=== PATIENT | male | born 1935 | race Caucasian/White ===

== ENCOUNTER 2017-12-18 09:55 | Emergency (ER) | payer MEDICARE, OTHER ==
[2017-12-18] MEDS: IBUPROFEN 200 MG TAB PO (10:52)
[2017-12-18 11:17] LABS: ADD MAN DIFF? NO
[2017-12-18 11:22] LABS: BASOPHILS % 0.1 % (0.0-2.0); EOSINOPHILS # 0.2 10^3/ul (0.0-0.5); EOSINOPHILS % 1.9 % (0.0-7.0); HEMATOCRIT 34.6 % (42.0-52.0); HEMOGLOBIN 11.5 g/dl (14.0-18.0); LYMPHOCYTES # 1.9 10^3/ul (0.8-2.9); LYMPHOCYTES % 18.9 % (15.0-51.0); MEAN CORPUSCULAR HEMOGLOBIN 31.9 pg (29.0-33.0); MEAN CORPUSCULAR HGB CONC 33.2 g/dl (32.0-37.0); MEAN CORPUSCULAR VOLUME 95.8 fl (82.0-101.0); MEAN PLATELET VOLUME 10.6 fl (7.4-10.4); MONOCYTE # 0.9 10^3/ul (0.3-0.9); MONOCYTES % 9.2 % (0.0-11.0); NEUTROPHILS % 69.3 % (39.0-77.0); PLATELET COUNT 239 10^3/UL (140-415); RED BLOOD COUNT 3.61 10^6/ul (4.70-6.10); RED CELL DISTRIBUTION WIDTH 13.2 % (11.5-14.5)
[2017-12-18 11:31] LABS: ADD UMIC NO; UR ASCORBIC ACID 40 mg/dL (NEGATIVE); UR BILIRUBIN (Dip) NEGATIVE (NEGATIVE); UR BLOOD (Dip) NEGATIVE (NEGATIVE); UR CLARITY CLEAR (CLEAR); UR COLOR YELLOW (YELLOW); UR GLUCOSE (Dip) NEGATIVE (NEGATIVE); UR KETONES (Dip) NEGATIVE (NEGATIVE); UR LEUKOCYTE ESTERASE (Dip) NEGATIVE Leu/ul (NEGATIVE); UR NITRITE (Dip) NEGATIVE (NEGATIVE); UR TOTAL PROTEIN (Dip) NEGATIVE (NEGATIVE); UR UROBILINOGEN (Dip) NEGATIVE (NEGATIVE)
[2017-12-18 11:47] LABS: ALANINE AMINOTRANSFERASE 20 IU/L (13-69); ALBUMIN 4.1 g/dl (3.3-4.9); ALKALINE PHOSPHATASE 98 IU/L (42-121); ANION GAP 21 (8-16); ASPARTATE AMINO TRANSFERASE 14 IU/L (15-46); BLOOD UREA NITROGEN 50 mg/dl (7-20); CALCIUM 9.9 mg/dl (8.4-10.2); CARBON DIOXIDE 30 mmol/L (21-31); CHLORIDE 100 mmol/L (97-110); CREATININE 4.45 mg/dl (0.61-1.24); GLUCOSE 141 mg/dl (70-220); LIPASE 150 U/L (23-300); POTASSIUM 4.7 mmol/L (3.5-5.1); SODIUM 146 mmol/L (135-144); TOTAL PROTEIN 7.5 g/dl (6.1-8.1)
== END 2017-12-18 12:30 | disposition home or self-care (01) ==
LOC: FTE 09:55
DX: M54.9 Dorsalgia, unspecified (principal); I25.10 Atherosclerotic heart disease of native coronary artery without angina pectoris; I12.9 Hypertensive chronic kidney disease with stage 1 through stage 4 chronic kidney disease, or unspecified chronic kidney disease; N18.9 Chronic kidney disease, unspecified; E11.22 Type 2 diabetes mellitus with diabetic chronic kidney disease; Z79.4 Long term (current) use of insulin; Z79.82 Long term (current) use of aspirin; Z95.1 Presence of aortocoronary bypass graft
CPT/HCPCS: 74176; 80053; 81003; 83690; 85025; 93971; 99285-25

== ENCOUNTER 2018-04-18 11:10 | Emergency (ER) | payer MEDICARE, OTHER ==
[2018-04-18 12:30] LABS: ADD MAN DIFF? NO
[2018-04-18 12:37] LABS: WHITE BLOOD COUNT 10.7 10^3/ul (4.8-10.8)
[2018-04-18 12:37] LABS: BASOPHILS % 0.1 % (0.0-2.0); EOSINOPHILS # 0.1 10^3/ul (0.0-0.5); EOSINOPHILS % 0.7 % (0.0-7.0); HEMATOCRIT 32.6 % (42.0-52.0); HEMOGLOBIN 11.3 g/dl (14.0-18.0); LYMPHOCYTES # 1.2 10^3/ul (0.8-2.9); LYMPHOCYTES % 11.4 % (15.0-51.0); MEAN CORPUSCULAR HEMOGLOBIN 32.1 pg (29.0-33.0); MEAN CORPUSCULAR HGB CONC 34.7 g/dl (32.0-37.0); MEAN CORPUSCULAR VOLUME 92.6 fl (82.0-101.0); MEAN PLATELET VOLUME 11.2 fl (7.4-10.4); MONOCYTE # 1.1 10^3/ul (0.3-0.9); MONOCYTES % 9.8 % (0.0-11.0); NEUTROPHIL # 8.3 10^3/ul (1.6-7.5); NEUTROPHILS % 77.4 % (39.0-77.0); PLATELET COUNT 213 10^3/UL (140-415); RED BLOOD COUNT 3.52 10^6/ul (4.70-6.10); RED CELL DISTRIBUTION WIDTH 13.6 % (11.5-14.5)
[2018-04-18 12:56] LABS: INR 0.98; PROTIME 13.1 Sec (11.9-14.9)
[2018-04-18] MEDS: PANTOPRAZOLE 40 MG INJ IV (12:56)
[2018-04-18 12:57] LABS: PARTIAL THROMBOPLASTIN TIME 26.9 Sec (25.0-35.0)
[2018-04-18 13:02] LABS: ALANINE AMINOTRANSFERASE 25 IU/L (13-69); ALBUMIN 3.7 g/dl (3.3-4.9); ALBUMIN/GLOBULIN RATIO 1.32; ALKALINE PHOSPHATASE 86 IU/L (42-121); ANION GAP 15 (8-16); ASPARTATE AMINO TRANSFERASE 16 IU/L (15-46); BILIRUBIN,INDIRECT 0.2 mg/dl (0-1.1); BILIRUBIN,TOTAL 0.2 mg/dl (0.2-1.3); BLOOD UREA NITROGEN 86 mg/dl (7-20); CALCIUM 9.5 mg/dl (8.4-10.2); CARBON DIOXIDE 25 mmol/L (21-31); CHLORIDE 104 mmol/L (97-110); CREATININE 4.62 mg/dl (0.61-1.24); GLUCOSE 100 mg/dl (70-220); POTASSIUM 3.3 mmol/L (3.5-5.1); SODIUM 141 mmol/L (135-144); TOTAL PROTEIN 6.5 g/dl (6.1-8.1)
[2018-04-18 13:15] LABS: TROPONIN-I 0.086 ng/ml (0.000-0.120)
[2018-04-18 13:39] LABS: OCCULT BLOOD STOOL NEGATIVE (NEGATIVE)
[2018-04-18] MEDS: POTASSIUM CHLORIDE (SR) 20 MEQ TAB PO (14:12)
[2018-04-18] MEDS: LOPERAMIDE HCL 1 MG/5 ML LIQUID (10 ML UD CUP) PO (14:12)
== END 2018-04-18 14:16 | disposition home or self-care (01) ==
LOC: E/R 11:10
DX: D64.9 Anemia, unspecified (principal); I25.10 Atherosclerotic heart disease of native coronary artery without angina pectoris; E11.9 Type 2 diabetes mellitus without complications; I10 Essential (primary) hypertension; R10.32 Left lower quadrant pain; Z95.1 Presence of aortocoronary bypass graft; Z79.82 Long term (current) use of aspirin; Z79.4 Long term (current) use of insulin
CPT/HCPCS: 36415; 80053; 82270; 84484; 85025; 85610; 85730; 86850; 86900; 86901; 93005; 96374; 99284-25

== ENCOUNTER 2018-05-09 17:24 | Inpatient (IN) | payer MEDICARE, OTHER ==
[2018-05-09 17:46] LABS: ADD MAN DIFF? NO
[2018-05-09 17:52] LABS: BASOPHILS % 0.1 % (0.0-2.0); EOSINOPHILS % 0.2 % (0.0-7.0); HEMATOCRIT 28.6 % (42.0-52.0); HEMOGLOBIN 9.9 g/dl (14.0-18.0); LYMPHOCYTES # 1.3 10^3/ul (0.8-2.9); LYMPHOCYTES % 9.8 % (15.0-51.0); MEAN CORPUSCULAR HEMOGLOBIN 31.5 pg (29.0-33.0); MEAN CORPUSCULAR HGB CONC 34.6 g/dl (32.0-37.0); MEAN CORPUSCULAR VOLUME 91.1 fl (82.0-101.0); MEAN PLATELET VOLUME 9.7 fl (7.4-10.4); MONOCYTE # 1.2 10^3/ul (0.3-0.9); MONOCYTES % 9.3 % (0.0-11.0); NEUTROPHIL # 10.3 10^3/ul (1.6-7.5); NEUTROPHILS % 79.9 % (39.0-77.0); PLATELET COUNT 185 10^3/UL (140-415); RED BLOOD COUNT 3.14 10^6/ul (4.70-6.10); RED CELL DISTRIBUTION WIDTH 13.2 % (11.5-14.5)
[2018-05-09 17:52] LABS: WHITE BLOOD COUNT 12.9 10^3/ul (4.8-10.8)
[2018-05-09 18:10] LABS: ALANINE AMINOTRANSFERASE 15 IU/L (13-69); ALBUMIN 3.3 g/dl (3.3-4.9); ALBUMIN/GLOBULIN RATIO 1.13; ALKALINE PHOSPHATASE 70 IU/L (42-121); ANION GAP 14 (8-16); ASPARTATE AMINO TRANSFERASE 16 IU/L (15-46); BILIRUBIN,INDIRECT 0.4 mg/dl (0-1.1); BILIRUBIN,TOTAL 0.4 mg/dl (0.2-1.3); BLOOD UREA NITROGEN 80 mg/dl (7-20); CARBON DIOXIDE 24 mmol/L (21-31); CHLORIDE 100 mmol/L (97-110); CREATININE 4.57 mg/dl (0.61-1.24); GLUCOSE 145 mg/dl (70-220); LIPASE 71 U/L (23-300); POTASSIUM 3.4 mmol/L (3.5-5.1); SODIUM 135 mmol/L (135-144); TOTAL PROTEIN 6.2 g/dl (6.1-8.1)
[2018-05-09 19:08] LABS: URINE BLOOD (Dip) POC 2+ (NEGATIVE); URINE GLUCOSE (Dip) POC Negative (NEGATIVE); URINE KETONES (Dip) POC Negative (NEGATIVE); URINE LEUKOCYTE EST (Dip) POC 3+ (NEGATIVE); URINE NITRITE (Dip) POC Negative (NEGATIVE); URINE TOTAL PROTEIN POC Trace (NEGATIVE)
[2018-05-09] MEDS: CEFTRIAXONE 1 GM/50 ML (PMX) 50 ML IVPB (22:18)
[2018-05-10] MEDS ORDERED: ONDANSETRON 4 MG TAB PO (00:30)
[2018-05-10] MEDS ORDERED: NACL 0.9% 3 ML SYG IV (00:30)
[2018-05-10] MEDS ORDERED: ZOLPIDEM 5 MG TAB PO (00:30)
[2018-05-10] MEDS ORDERED: GLUCAGON 1 MG INJ IM (01:00)
[2018-05-10] MEDS ORDERED: NON-FORMULARY/PATIENT OWN MED (Hydrocodone/Acetaminophen (Norco 5-325 Tablet) 1 EACH) PO ×2 (01:00)
[2018-05-10] MEDS ORDERED: GLUCOSE GEL 15 GRAM TUBE PO ×2 (01:00)
[2018-05-10] MEDS ORDERED: ACETAMINOPHEN 325 MG TAB PO (01:00)
[2018-05-10] MEDS ORDERED: GLUCOSE GEL 15 GRAM TUBE BUCCAL (01:00)
[2018-05-10] MEDS ORDERED: DEXTROSE 50% 50 ML SYRINGE IV ×2 (01:00)
[2018-05-10] MEDS: ACCU-CHEK XX (01:09)
[2018-05-10] MEDS: FUROSEMIDE 40 MG TAB PO ×2 (05:45→17:44)
[2018-05-10] MEDS ORDERED: PENDING SANTYL ORDER FOR WOUND CARE XX (06:00)
[2018-05-10] MEDS: INSULIN ASPART [NOVOLOG] 3 ML PEN SC ×4 (08:00→21:00)
[2018-05-10] MEDS ORDERED: NON-FORMULARY/PATIENT OWN MED (Sitagliptin* (Januvia*) 50 MG) PO (09:00)
[2018-05-10] MEDS: ASPIRIN (EC) 81 MG TAB PO (09:16)
[2018-05-10] MEDS: GABAPENTIN 300 MG CAP PO ×3 (09:17→22:19)
[2018-05-10] MEDS: FAMOTIDINE 20 MG TAB PO (09:17)
[2018-05-10] MEDS: METOPROLOL 50 MG TAB PO ×2 (09:17→22:19)
[2018-05-10] MEDS: traMADol 50 MG TAB PO (09:18)
[2018-05-10] MEDS: LINAGLIPTIN 5 MG TABLET PO (09:18)
[2018-05-10] MEDS: CALCITRIOL 0.25 MCG CAP PO (10:30)
[2018-05-10] MEDS: METOLAZONE 2.5 MG TAB PO (10:30)
[2018-05-10] MEDS: POTASSIUM CHLORIDE (SR) 20 MEQ TAB PO (17:45)
[2018-05-11] MEDS: ACCU-CHEK XX (01:36)
[2018-05-11] MEDS: traMADol 50 MG TAB PO ×2 (04:02→08:43)
[2018-05-11 05:41] LABS: HEMATOCRIT 27.7 % (42.0-52.0); HEMOGLOBIN 9.6 g/dl (14.0-18.0)
[2018-05-11 06:04] LABS: MAGNESIUM 1.2 mg/dl (1.7-2.5)
[2018-05-11 06:07] LABS: ANION GAP 13 (8-16); BLOOD UREA NITROGEN 85 mg/dl (7-20); CALCIUM 8.5 mg/dl (8.4-10.2); CARBON DIOXIDE 24 mmol/L (21-31); CHLORIDE 102 mmol/L (97-110); CREATININE 4.69 mg/dl (0.61-1.24); GLUCOSE 76 mg/dl (70-220); POTASSIUM 3.7 mmol/L (3.5-5.1); SODIUM 135 mmol/L (135-144)
[2018-05-11] MEDS: FUROSEMIDE 40 MG TAB PO (06:27)
[2018-05-11 06:28] LABS: THYROID STIMULATING HORMONE 0.887 MIU/L (0.465-4.680)
[2018-05-11] MEDS: INSULIN ASPART [NOVOLOG] 3 ML PEN SC ×4 (08:00→21:18)
[2018-05-11] MEDS: ASPIRIN (EC) 81 MG TAB PO (08:26)
[2018-05-11] MEDS: POTASSIUM CHLORIDE (SR) 20 MEQ TAB PO (08:27)
[2018-05-11] MEDS: LINAGLIPTIN 5 MG TABLET PO (08:27)
[2018-05-11] MEDS: CALCITRIOL 0.25 MCG CAP PO (08:27)
[2018-05-11] MEDS: FAMOTIDINE 20 MG TAB PO (08:27)
[2018-05-11] MEDS: METOLAZONE 2.5 MG TAB PO (08:28)
[2018-05-11] MEDS: METOPROLOL 50 MG TAB PO ×2 (08:28→21:15)
[2018-05-11] MEDS: GABAPENTIN 300 MG CAP PO ×3 (08:30→21:15)
[2018-05-11 08:36] LABS: HEMOGLOBIN A1C 5.4 % (0-5.9)
[2018-05-11] MEDS ORDERED: MAGNESIUM SULFATE 1 GM/D5W 100 ML IVPB (10:00)
[2018-05-11] MEDS ORDERED: HYDROCODONE/APAP (10/325) TAB PO (10:00)
[2018-05-11 11:04] LABS: PHOSPHORUS 4.4 mg/dl (2.5-4.9)
[2018-05-11 11:14] LABS: B-TYPE NATRIURETIC PEPTIDE 5090 PG/ML (0-450)
[2018-05-11] MEDS: ACETAMINOPHEN 325 MG TAB PO (11:57)
[2018-05-11] MEDS: MAGNESIUM SULFATE 3 GM in DEXTROSE 5% 100 ML IVPB (11:57)
[2018-05-11 13:06] LABS: CREATININE,URINE RANDOM 82.94 mg/dl (20-370); PROTEIN/CREAT RATIO 0.31 RATIO
[2018-05-11] MEDS: EPOETIN 10000 UNITS/1 ML INJ (ESRD) SC (16:54)
[2018-05-11] MEDS: INSULIN GLARGINE [LANTus] (100 UNITS/ML) SYG SC (21:26)
[2018-05-12] MEDS: ACCU-CHEK XX ×2 (02:00→20:36)
[2018-05-12] MEDS ORDERED: INSULIN ASPART [NOVOLOG] 3 ML PEN SC (03:00)
[2018-05-12 06:11] LABS: ADD MAN DIFF? NO
[2018-05-12 06:25] LABS: BASOPHILS % 0.1 % (0.0-2.0); EOSINOPHILS # 0.1 10^3/ul (0.0-0.5); EOSINOPHILS % 0.9 % (0.0-7.0); HEMATOCRIT 27.3 % (42.0-52.0); HEMOGLOBIN 9.4 g/dl (14.0-18.0); LYMPHOCYTES % 9.6 % (15.0-51.0); MEAN CORPUSCULAR HEMOGLOBIN 31.5 pg (29.0-33.0); MEAN CORPUSCULAR HGB CONC 34.4 g/dl (32.0-37.0); MEAN CORPUSCULAR VOLUME 91.6 fl (82.0-101.0); MEAN PLATELET VOLUME 10.9 fl (7.4-10.4); MONOCYTE # 1.2 10^3/ul (0.3-0.9); MONOCYTES % 12.4 % (0.0-11.0); NEUTROPHIL # 7.6 10^3/ul (1.6-7.5); NEUTROPHILS % 76.1 % (39.0-77.0); PLATELET COUNT 166 10^3/UL (140-415); RED BLOOD COUNT 2.98 10^6/ul (4.70-6.10); RED CELL DISTRIBUTION WIDTH 12.9 % (11.5-14.5)
[2018-05-12 06:32] LABS: MAGNESIUM 1.9 mg/dl (1.7-2.5)
[2018-05-12 06:43] LABS: ALANINE AMINOTRANSFERASE 20 IU/L (13-69); ALBUMIN 2.9 g/dl (3.3-4.9); ALKALINE PHOSPHATASE 63 IU/L (42-121); ANION GAP 12 (8-16); ASPARTATE AMINO TRANSFERASE 13 IU/L (15-46); BILIRUBIN,INDIRECT 0.2 mg/dl (0-1.1); BILIRUBIN,TOTAL 0.2 mg/dl (0.2-1.3); BLOOD UREA NITROGEN 95 mg/dl (7-20); CALCIUM 8.6 mg/dl (8.4-10.2); CARBON DIOXIDE 26 mmol/L (21-31); CHLORIDE 98 mmol/L (97-110); CREATININE 4.91 mg/dl (0.61-1.24); GLUCOSE 112 mg/dl (70-220); POTASSIUM 3.9 mmol/L (3.5-5.1); SODIUM 132 mmol/L (135-144); TOTAL PROTEIN 5.8 g/dl (6.1-8.1)
[2018-05-12 06:51] LABS: IRON 21 ug/dl (35-150)
[2018-05-12 07:00] LABS: % IRON SATURATION 10 % SAT (22-52); TOTAL IRON BINDING CAPACITY 212 ug/dl (241-421)
[2018-05-12] MEDS: INSULIN ASPART [NOVOLOG] 3 ML PEN SC ×7 (08:00→20:35)
[2018-05-12] MEDS: ASPIRIN (EC) 81 MG TAB PO (08:28)
[2018-05-12] MEDS: POTASSIUM CHLORIDE (SR) 20 MEQ TAB PO (08:28)
[2018-05-12] MEDS: FAMOTIDINE 20 MG TAB PO (08:28)
[2018-05-12] MEDS: GABAPENTIN 300 MG CAP PO ×3 (08:28→20:34)
[2018-05-12] MEDS: CALCITRIOL 0.25 MCG CAP PO (08:28)
[2018-05-12] MEDS: LINAGLIPTIN 5 MG TABLET PO (08:28)
[2018-05-12] MEDS: METOPROLOL 50 MG TAB PO ×2 (08:29→20:34)
[2018-05-12] MEDS ORDERED: HYDROCODONE/APAP (5/325) TAB PO (12:30)
[2018-05-12] MEDS: SOD FERRIC GLUC COMPLX 125 MG in SOD CHLORIDE 0.9% 100 ML IVPB (17:56)
[2018-05-12] MEDS ORDERED: INSULIN GLARGINE [LANTus] (100 UNITS/ML) SYG SC (20:00)
[2018-05-12] MEDS: INSULIN GLARGINE [LANTus] (100 UNITS/ML) SYG SC (20:35)
[2018-05-13 04:57] LABS: ADD MAN DIFF? NO
[2018-05-13 05:03] LABS: WHITE BLOOD COUNT 10.3 10^3/ul (4.8-10.8)
[2018-05-13 05:03] LABS: ABNORMAL IP MESSAGE 1; BASOPHILS % 0.2 % (0.0-2.0); EOSINOPHILS # 0.1 10^3/ul (0.0-0.5); EOSINOPHILS % 0.7 % (0.0-7.0); HEMATOCRIT 27.1 % (42.0-52.0); HEMOGLOBIN 9.3 g/dl (14.0-18.0); LYMPHOCYTES # 1.1 10^3/ul (0.8-2.9); LYMPHOCYTES % 11.1 % (15.0-51.0); MEAN CORPUSCULAR HEMOGLOBIN 31.6 pg (29.0-33.0); MEAN CORPUSCULAR HGB CONC 34.3 g/dl (32.0-37.0); MEAN CORPUSCULAR VOLUME 92.2 fl (82.0-101.0); MEAN PLATELET VOLUME 10.6 fl (7.4-10.4); MONOCYTE # 1.5 10^3/ul (0.3-0.9); MONOCYTES % 14.7 % (0.0-11.0); NEUTROPHIL # 7.5 10^3/ul (1.6-7.5); NEUTROPHILS % 72.7 % (39.0-77.0); PLATELET COUNT 183 10^3/UL (140-415); POSITIVE DIFF @See below; RED BLOOD COUNT 2.94 10^6/ul (4.70-6.10); RED CELL DISTRIBUTION WIDTH 13.1 % (11.5-14.5)
[2018-05-13 05:26] LABS: ALANINE AMINOTRANSFERASE 20 IU/L (13-69); ALBUMIN/GLOBULIN RATIO 1.11; ALKALINE PHOSPHATASE 67 IU/L (42-121); ANION GAP 14 (8-16); ASPARTATE AMINO TRANSFERASE 13 IU/L (15-46); BILIRUBIN,INDIRECT 0.1 mg/dl (0-1.1); BILIRUBIN,TOTAL 0.1 mg/dl (0.2-1.3); BLOOD UREA NITROGEN 101 mg/dl (7-20); CALCIUM 8.8 mg/dl (8.4-10.2); CARBON DIOXIDE 24 mmol/L (21-31); CHLORIDE 100 mmol/L (97-110); CREATININE 5.43 mg/dl (0.61-1.24); GLUCOSE 144 mg/dl (70-220); POTASSIUM 4.3 mmol/L (3.5-5.1); SODIUM 134 mmol/L (135-144); TOTAL PROTEIN 5.7 g/dl (6.1-8.1)
[2018-05-13] MEDS: traMADol 50 MG TAB PO (05:46)
[2018-05-13] MEDS: INSULIN ASPART [NOVOLOG] 3 ML PEN SC ×7 (08:20→21:00)
[2018-05-13] MEDS: CALCITRIOL 0.25 MCG CAP PO (08:22)
[2018-05-13] MEDS: ASPIRIN (EC) 81 MG TAB PO (08:22)
[2018-05-13] MEDS: FAMOTIDINE 20 MG TAB PO (08:22)
[2018-05-13] MEDS: LINAGLIPTIN 5 MG TABLET PO (08:22)
[2018-05-13] MEDS: GABAPENTIN 300 MG CAP PO ×3 (08:22→21:04)
[2018-05-13] MEDS: METOPROLOL 50 MG TAB PO ×2 (08:23→21:05)
[2018-05-13] MEDS: SOD FERRIC GLUC COMPLX 125 MG in SOD CHLORIDE 0.9% 100 ML IVPB (17:21)
[2018-05-13] MEDS: INSULIN GLARGINE [LANTus] (100 UNITS/ML) SYG SC (21:09)
[2018-05-14] MEDS: ACCU-CHEK XX (02:00)
[2018-05-14 05:39] LABS: ADD MAN DIFF? NO
[2018-05-14 05:44] LABS: WHITE BLOOD COUNT 9.8 10^3/ul (4.8-10.8)
[2018-05-14 05:44] LABS: BASOPHILS % 0.2 % (0.0-2.0); EOSINOPHILS # 0.1 10^3/ul (0.0-0.5); EOSINOPHILS % 0.8 % (0.0-7.0); HEMATOCRIT 28.1 % (42.0-52.0); HEMOGLOBIN 9.3 g/dl (14.0-18.0); LYMPHOCYTES # 0.8 10^3/ul (0.8-2.9); LYMPHOCYTES % 7.8 % (15.0-51.0); MEAN CORPUSCULAR HEMOGLOBIN 30.7 pg (29.0-33.0); MEAN CORPUSCULAR HGB CONC 33.1 g/dl (32.0-37.0); MEAN CORPUSCULAR VOLUME 92.7 fl (82.0-101.0); MEAN PLATELET VOLUME 10.7 fl (7.4-10.4); MONOCYTE # 1.5 10^3/ul (0.3-0.9); MONOCYTES % 15.3 % (0.0-11.0); NEUTROPHIL # 7.3 10^3/ul (1.6-7.5); PLATELET COUNT 188 10^3/UL (140-415); RED BLOOD COUNT 3.03 10^6/ul (4.70-6.10); RED CELL DISTRIBUTION WIDTH 12.9 % (11.5-14.5)
[2018-05-14 06:26] LABS: ANION GAP 12 (8-16); BLOOD UREA NITROGEN 101 mg/dl (7-20); CALCIUM 9.1 mg/dl (8.4-10.2); CARBON DIOXIDE 26 mmol/L (21-31); CHLORIDE 101 mmol/L (97-110); GLUCOSE 53 mg/dl (70-220); POTASSIUM 4.1 mmol/L (3.5-5.1); SODIUM 135 mmol/L (135-144)
[2018-05-14] MEDS: INSULIN ASPART [NOVOLOG] 3 ML PEN SC ×8 (07:35→20:55)
[2018-05-14] MEDS: DEXTROSE 5%-0.45% NACL 1,000 ML IV (08:37)
[2018-05-14] MEDS: CALCITRIOL 0.25 MCG CAP PO (08:43)
[2018-05-14] MEDS: ASPIRIN (EC) 81 MG TAB PO (08:43)
[2018-05-14] MEDS: LINAGLIPTIN 5 MG TABLET PO (08:43)
[2018-05-14] MEDS: GABAPENTIN 300 MG CAP PO ×2 (08:43→12:44)
[2018-05-14] MEDS: METOPROLOL 50 MG TAB PO ×2 (08:43→23:59)
[2018-05-14] MEDS: FAMOTIDINE 20 MG TAB PO (08:43)
[2018-05-14] MEDS ORDERED: LIDOCAINE 1% (MDV) 20 ML INJ (09:36)
[2018-05-14] MEDS ORDERED: HEPARIN 1000 UNITS/ML 10 ML INJ ×2 (09:36→10:45)
[2018-05-14] MEDS ORDERED: FENTAnyl 50 MCG/ML VIAL (09:48)
[2018-05-14] MEDS ORDERED: MIDAZOLAM 1 MG/ML 2 ML INJ (09:48)
[2018-05-14] MEDS ORDERED: CEFAZOLIN 1 GM/50 ML (PMX) 50 ML IVPB (10:24)
[2018-05-14 12:19] LABS: HAAIG REFLEX REFLEX FILED
[2018-05-14] MEDS ORDERED: GLUCAGON 1 MG INJ IM (13:00)
[2018-05-14] MEDS ORDERED: GLUCOSE GEL 15 GRAM TUBE PO ×2 (13:00)
[2018-05-14] MEDS ORDERED: GLUCOSE GEL 15 GRAM TUBE BUCCAL (13:00)
[2018-05-14] MEDS ORDERED: DEXTROSE 50% 50 ML SYRINGE IV ×2 (13:00)
[2018-05-14 13:10] LABS: HEPATITIS B SURFACE ANTIGEN NEGATIVE (NEGATIVE)
[2018-05-14 13:28] LABS: HEPATITIS B CORE ANTIBODY REACTIVE (NEGATIVE); HEPATITIS C VIRAL ANTIBODY NEGATIVE (NEGATIVE)
[2018-05-14] MEDS: SOD FERRIC GLUC COMPLX 125 MG in SOD CHLORIDE 0.9% 100 ML IVPB (16:50)
[2018-05-14] MEDS: EPOETIN 10000 UNITS/1 ML INJ (ESRD) SC (16:53)
[2018-05-14 19:16] LABS: PTH CALCIUM 8.5 mg/dL (8.6-10.3)
[2018-05-14] MEDS: MANNITOL 25% 50 ML INJ IV* (20:32)
[2018-05-14] MEDS: INSULIN GLARGINE [LANTus] (100 UNITS/ML) SYG SC (20:53)
[2018-05-14] MEDS: HEPARIN 1000 UNITS/ML 10 ML INJ CATHETER (23:50)
[2018-05-15 07:42] LABS: PTH INTACT 156 pg/mL (14-64)
[2018-05-15] MEDS: INSULIN ASPART [NOVOLOG] 3 ML PEN SC ×6 (08:16→17:26)
[2018-05-15] MEDS: GABAPENTIN 300 MG CAP PO ×3 (08:18→12:57)
[2018-05-15] MEDS: LINAGLIPTIN 5 MG TABLET PO (08:18)
[2018-05-15] MEDS: CALCITRIOL 0.25 MCG CAP PO (08:18)
[2018-05-15] MEDS: ASPIRIN (EC) 81 MG TAB PO (08:18)
[2018-05-15] MEDS: FAMOTIDINE 20 MG TAB PO (08:18)
[2018-05-15] MEDS: METOPROLOL 50 MG TAB PO (08:19)
[2018-05-15] MEDS: SOD FERRIC GLUC COMPLX 125 MG in SOD CHLORIDE 0.9% 100 ML IVPB (16:50)
[2018-05-15 18:27] LABS: PTH CALCIUM 8.8 mg/dL (8.6-10.3)
[2018-05-17 00:04] LABS: PTH INTACT 145 pg/mL (14-64)
== END 2018-05-15 18:30 | DRG 673 ==
LOC: E/R 17:24 → PP2 21:44
PROC: 0JH63XZ Insertion of Tunneled Vascular Access Device into Chest Subcutaneous Tissue and Fascia, Percutaneous Approach (ICD-10-PCS; principal; 2018-05-14 10:00)
PROC: 02H633Z Insertion of Infusion Device into Right Atrium, Percutaneous Approach (ICD-10-PCS; 2018-05-14 10:00)
PROC: B214YZZ Fluoroscopy of Right Heart using Other Contrast (ICD-10-PCS; 2018-05-14 10:00)
PROC: 5A1D70Z Performance of Urinary Filtration, Intermittent, Less than 6 Hours Per Day (ICD-10-PCS; 2018-05-14 10:00)
DX: I12.0 Hypertensive chronic kidney disease with stage 5 chronic kidney disease or end stage renal disease (principal); N18.6 End stage renal disease; N39.0 Urinary tract infection, site not specified; N25.81 Secondary hyperparathyroidism of renal origin; E11.22 Type 2 diabetes mellitus with diabetic chronic kidney disease; E11.21 Type 2 diabetes mellitus with diabetic nephropathy; D63.8 Anemia in other chronic diseases classified elsewhere; D50.9 Iron deficiency anemia, unspecified; E87.6 Hypokalemia; E78.5 Hyperlipidemia, unspecified; F17.200 Nicotine dependence, unspecified, uncomplicated; G89.29 Other chronic pain; I25.10 Atherosclerotic heart disease of native coronary artery without angina pectoris; M54.9 Dorsalgia, unspecified; M51.16 Intervertebral disc disorders with radiculopathy, lumbar region; R19.7 Diarrhea, unspecified; R53.1 Weakness; R32 Unspecified urinary incontinence; Z99.2 Dependence on renal dialysis; Z95.1 Presence of aortocoronary bypass graft; Z90.49 Acquired absence of other specified parts of digestive tract; Z79.4 Long term (current) use of insulin; Z79.82 Long term (current) use of aspirin
CPT/HCPCS: 36415; 71045; 74176; 80048; 80053; 81003; 82570; 82728; 82962; 83036; 83540; 83690; 83735; 83880; 83970; 84100; 84443; 85014; 85018; 85025; 86704; 86709; 86803; 87086; 87340; 90935; 97110; 97116; 97161; 97530; 99285-25; G0378

== ENCOUNTER 2018-05-15 18:43 | Inpatient (IN) | payer MEDICARE, OTHER ==
[2018-05-15] MEDS ORDERED: PENDING SANTYL ORDER FOR WOUND CARE XX ×2 (19:00→21:00)
[2018-05-15] MEDS ORDERED: LACTULOSE 30ML CUP PO (19:00)
[2018-05-15] MEDS ORDERED: MAGNESIUM HYDROXIDE 30ML CUP PO (19:00)
[2018-05-15] MEDS ORDERED: BISACODYL 10 MG SUPP PR (19:00)
[2018-05-15] MEDS ORDERED: NACL 0.9% 3 ML SYG IV (21:00)
[2018-05-15] MEDS ORDERED: GLUCAGON 1 MG INJ IM (21:00)
[2018-05-15] MEDS ORDERED: ONDANSETRON 4 MG TAB PO (21:00)
[2018-05-15] MEDS ORDERED: ZOLPIDEM 5 MG TAB PO (21:00)
[2018-05-15] MEDS ORDERED: GLUCOSE GEL 15 GRAM TUBE BUCCAL (21:00)
[2018-05-15] MEDS ORDERED: DEXTROSE 50% 50 ML SYRINGE IV ×2 (21:00)
[2018-05-15] MEDS ORDERED: ACETAMINOPHEN 325 MG TAB PO (21:00)
[2018-05-15] MEDS ORDERED: GLUCOSE GEL 15 GRAM TUBE PO (21:00)
[2018-05-15] MEDS: DOCUSATE SODIUM 100 MG CAP PO (22:49)
[2018-05-15] MEDS: METOPROLOL 50 MG TAB PO (22:50)
[2018-05-15] MEDS: GABAPENTIN 300 MG CAP PO (22:50)
[2018-05-15] MEDS: SENNA TAB PO (22:50)
[2018-05-15] MEDS: INSULIN GLARGINE [LANTus] (100 UNITS/ML) SYG SC (22:56)
[2018-05-15] MEDS: INSULIN ASPART [NOVOLOG] 3 ML PEN SC (23:07)
[2018-05-16 04:11] LABS: ADD UMIC YES; UR ASCORBIC ACID NEGATIVE (NEGATIVE); UR BACTERIA FEW /HPF (NONE SEEN); UR BILIRUBIN (Dip) NEGATIVE (NEGATIVE); UR BLOOD (Dip) 1+ mg/dL (NEGATIVE); UR CLARITY CLOUDY (CLEAR); UR COLOR YELLOW (YELLOW); UR GLUCOSE (Dip) NEGATIVE (NEGATIVE); UR KETONES (Dip) NEGATIVE (NEGATIVE); UR LEUKOCYTE ESTERASE (Dip) 3+ Leu/ul (NEGATIVE); UR NITRITE (Dip) NEGATIVE (NEGATIVE); UR RBC 6 /HPF (0-5); UR SPECIFIC GRAVITY (Dip) 1.013 (1.003-1.030); UR TOTAL PROTEIN (Dip) NEGATIVE (NEGATIVE); UR UROBILINOGEN (Dip) NEGATIVE (NEGATIVE); UR WBC > 182 /HPF (0-5)
[2018-05-16 07:49] LABS: ADD MAN DIFF? NO
[2018-05-16 07:55] LABS: BASOPHILS % 0.2 % (0.0-2.0); EOSINOPHILS # 0.1 10^3/ul (0.0-0.5); EOSINOPHILS % 1.4 % (0.0-7.0); HEMATOCRIT 29.6 % (42.0-52.0); HEMOGLOBIN 9.8 g/dl (14.0-18.0); LYMPHOCYTES # 0.9 10^3/ul (0.8-2.9); LYMPHOCYTES % 8.3 % (15.0-51.0); MEAN CORPUSCULAR HEMOGLOBIN 30.9 pg (29.0-33.0); MEAN CORPUSCULAR HGB CONC 33.1 g/dl (32.0-37.0); MEAN CORPUSCULAR VOLUME 93.4 fl (82.0-101.0); MONOCYTE # 1.3 10^3/ul (0.3-0.9); MONOCYTES % 12.7 % (0.0-11.0); NEUTROPHIL # 7.9 10^3/ul (1.6-7.5); NEUTROPHILS % 76.5 % (39.0-77.0); PLATELET COUNT 207 10^3/UL (140-415); RED BLOOD COUNT 3.17 10^6/ul (4.70-6.10); RED CELL DISTRIBUTION WIDTH 13.1 % (11.5-14.5)
[2018-05-16 07:55] LABS: WHITE BLOOD COUNT 10.3 10^3/ul (4.8-10.8)
[2018-05-16] MEDS: INSULIN ASPART [NOVOLOG] 3 ML PEN SC ×7 (08:14→21:00)
[2018-05-16] MEDS: ASPIRIN (EC) 81 MG TAB PO (08:16)
[2018-05-16 08:17] LABS: ALANINE AMINOTRANSFERASE 24 IU/L (13-69); ALBUMIN 2.9 g/dl (3.3-4.9); ALBUMIN/GLOBULIN RATIO 1.07; ALKALINE PHOSPHATASE 72 IU/L (42-121); ANION GAP 14 (8-16); ASPARTATE AMINO TRANSFERASE 19 IU/L (15-46); BILIRUBIN,INDIRECT 0.2 mg/dl (0-1.1); BILIRUBIN,TOTAL 0.2 mg/dl (0.2-1.3); BLOOD UREA NITROGEN 66 mg/dl (7-20); CALCIUM 9.4 mg/dl (8.4-10.2); CARBON DIOXIDE 27 mmol/L (21-31); CHLORIDE 102 mmol/L (97-110); CREATININE 4.31 mg/dl (0.61-1.24); GLUCOSE 141 mg/dl (70-220); POTASSIUM 4.6 mmol/L (3.5-5.1); SODIUM 138 mmol/L (135-144); TOTAL PROTEIN 5.6 g/dl (6.1-8.1)
[2018-05-16] MEDS: FAMOTIDINE 20 MG TAB PO (08:17)
[2018-05-16] MEDS: LINAGLIPTIN 5 MG TABLET PO (08:17)
[2018-05-16] MEDS: DOCUSATE SODIUM 100 MG CAP PO ×2 (08:17→21:06)
[2018-05-16] MEDS: GABAPENTIN 300 MG CAP PO ×3 (08:17→21:06)
[2018-05-16] MEDS: CALCITRIOL 0.25 MCG CAP PO (08:17)
[2018-05-16] MEDS: METOPROLOL 50 MG TAB PO ×2 (08:20→21:00)
[2018-05-16] MEDS: traMADol 50 MG TAB PO (08:28)
[2018-05-16 12:43] LABS: AADO2 Arterial 5.9 mmHg (7.0-24.0); Allen Test ACCEPTAB; Arterial Base Excess 1.9 mmol/L (-3.0-3); Arterial Blood Gas Oxygen Sat 97.4 mmHG (95.0-100.0); Arterial COHb 0.3 % (0.0-3.0); Arterial HCO3 25.2 mmol/L (22.0-26.0); Arterial MetHb 0.1 % (0.0-1.5); Arterial Total Hemglobin 10.2 g/dl (12.0-18.0); Arterial pCO2 34.3 mmhg (35-45); MODE ROOM AIR; Site Right Radial
[2018-05-16] MEDS: CYANOCOBALAMIN 1000 MCG INJ IM (15:14)
[2018-05-16] MEDS: SOD FERRIC GLUC COMPLX 125 MG in SOD CHLORIDE 0.9% 100 ML IVPB ×2 (17:00→21:04)
[2018-05-16] MEDS: EPOETIN 10000 UNITS/1 ML INJ (ESRD) SC (17:40)
[2018-05-16] MEDS: ALBUTEROL/IPRATROPIUM (NEB) 3 ML AMP HHN (20:55)
[2018-05-16] MEDS: SENNA TAB PO (21:00)
[2018-05-16] MEDS: INSULIN GLARGINE [LANTus] (100 UNITS/ML) SYG SC (21:06)
[2018-05-16] MEDS: ATORVASTATIN 40 MG TAB PO (21:06)
[2018-05-16] MEDS: HEPARIN 1000 UNITS/ML 10 ML INJ CATHETER (21:25)
[2018-05-17] MEDS: ALBUTEROL/IPRATROPIUM (NEB) 3 ML AMP HHN ×6 (00:18→21:13)
[2018-05-17] MEDS: CYANOCOBALAMIN 1000 MCG INJ IM (07:53)
[2018-05-17] MEDS: ASPIRIN (EC) 81 MG TAB PO (07:53)
[2018-05-17] MEDS: DOCUSATE SODIUM 100 MG CAP PO ×2 (07:53→21:00)
[2018-05-17] MEDS: GABAPENTIN 300 MG CAP PO ×3 (07:54→21:21)
[2018-05-17] MEDS: CALCITRIOL 0.25 MCG CAP PO (07:54)
[2018-05-17] MEDS: FAMOTIDINE 20 MG TAB PO (07:54)
[2018-05-17] MEDS: LINAGLIPTIN 5 MG TABLET PO (07:54)
[2018-05-17] MEDS: METOPROLOL 50 MG TAB PO ×2 (07:56→21:00)
[2018-05-17] MEDS: INSULIN ASPART [NOVOLOG] 3 ML PEN SC ×7 (07:59→21:28)
[2018-05-17] MEDS: traMADol 50 MG TAB PO (10:10)
[2018-05-17] MEDS: SOD FERRIC GLUC COMPLX 125 MG in SOD CHLORIDE 0.9% 100 ML IVPB (17:21)
[2018-05-17] MEDS: SENNA TAB PO (21:00)
[2018-05-17] MEDS: ATORVASTATIN 40 MG TAB PO (21:21)
[2018-05-17] MEDS: INSULIN GLARGINE [LANTus] (100 UNITS/ML) SYG SC (21:29)
[2018-05-18] MEDS: ALBUTEROL/IPRATROPIUM (NEB) 3 ML AMP HHN ×6 (01:08→20:12)
[2018-05-18] MEDS: INSULIN ASPART [NOVOLOG] 3 ML PEN SC ×7 (07:35→21:00)
[2018-05-18 07:55] LABS: HEMOGLOBIN A1C 5.8 % (0-5.9)
[2018-05-18] MEDS: LINAGLIPTIN 5 MG TABLET PO (08:00)
[2018-05-18] MEDS: CALCITRIOL 0.25 MCG CAP PO (09:23)
[2018-05-18] MEDS: FAMOTIDINE 20 MG TAB PO (09:23)
[2018-05-18] MEDS: DOCUSATE SODIUM 100 MG CAP PO ×2 (09:23→21:36)
[2018-05-18] MEDS: ASPIRIN (EC) 81 MG TAB PO (09:23)
[2018-05-18] MEDS: GABAPENTIN 300 MG CAP PO ×3 (09:23→21:37)
[2018-05-18] MEDS: CYANOCOBALAMIN 1000 MCG INJ IM (09:24)
[2018-05-18] MEDS: METOPROLOL 50 MG TAB PO ×2 (09:24→21:37)
[2018-05-18] MEDS: traMADol 50 MG TAB PO (11:13)
[2018-05-18] MEDS: EPOETIN 10000 UNITS/1 ML INJ (ESRD) SC (17:39)
[2018-05-18] MEDS: HEPARIN 1000 UNITS/ML 10 ML INJ CATHETER (20:16)
[2018-05-18] MEDS: ATORVASTATIN 40 MG TAB PO (21:36)
[2018-05-18] MEDS: SENNA TAB PO (21:36)
[2018-05-18] MEDS: SOD FERRIC GLUC COMPLX 125 MG in SOD CHLORIDE 0.9% 100 ML IVPB (21:42)
[2018-05-18] MEDS: INSULIN GLARGINE [LANTus] (100 UNITS/ML) SYG SC (21:46)
[2018-05-19] MEDS: ALBUTEROL/IPRATROPIUM (NEB) 3 ML AMP HHN ×6 (00:15→21:25)
[2018-05-19] MEDS: INSULIN ASPART [NOVOLOG] 3 ML PEN SC ×7 (07:35→21:00)
[2018-05-19] MEDS: DOCUSATE SODIUM 100 MG CAP PO ×2 (08:35→21:00)
[2018-05-19] MEDS: CYANOCOBALAMIN 1000 MCG INJ IM (08:35)
[2018-05-19] MEDS: ASPIRIN (EC) 81 MG TAB PO (08:35)
[2018-05-19] MEDS: METOPROLOL 50 MG TAB PO ×2 (08:36→21:01)
[2018-05-19] MEDS: GABAPENTIN 300 MG CAP PO ×3 (08:36→21:01)
[2018-05-19] MEDS: LINAGLIPTIN 5 MG TABLET PO (08:36)
[2018-05-19] MEDS: CALCITRIOL 0.25 MCG CAP PO (08:36)
[2018-05-19] MEDS: FAMOTIDINE 20 MG TAB PO (08:36)
[2018-05-19] MEDS: traMADol 50 MG TAB PO (12:39)
[2018-05-19] MEDS: INSULIN REGULAR, HUMAN 100 UNIT/1 ML 3ML VIAL SC (13:40)
[2018-05-19] MEDS: ATORVASTATIN 40 MG TAB PO (21:00)
[2018-05-19] MEDS: SENNA TAB PO (21:00)
[2018-05-19] MEDS: INSULIN GLARGINE [LANTus] (100 UNITS/ML) SYG SC (21:02)
[2018-05-20] MEDS: ALBUTEROL/IPRATROPIUM (NEB) 3 ML AMP HHN ×6 (01:20→21:18)
[2018-05-20] MEDS: INSULIN ASPART [NOVOLOG] 3 ML PEN SC ×7 (07:35→20:52)
[2018-05-20] MEDS: GABAPENTIN 300 MG CAP PO ×3 (08:48→20:48)
[2018-05-20] MEDS: LINAGLIPTIN 5 MG TABLET PO (08:48)
[2018-05-20] MEDS: DOCUSATE SODIUM 100 MG CAP PO ×2 (08:48→20:49)
[2018-05-20] MEDS: CALCITRIOL 0.25 MCG CAP PO (08:48)
[2018-05-20] MEDS: FAMOTIDINE 20 MG TAB PO (08:48)
[2018-05-20] MEDS: ASPIRIN (EC) 81 MG TAB PO (08:48)
[2018-05-20] MEDS: METOPROLOL 50 MG TAB PO ×2 (08:50→20:49)
[2018-05-20] MEDS: CYANOCOBALAMIN 1000 MCG INJ IM (08:54)
[2018-05-20] MEDS: SENNA TAB PO (20:48)
[2018-05-20] MEDS: ATORVASTATIN 40 MG TAB PO (20:49)
[2018-05-20] MEDS: INSULIN GLARGINE [LANTus] (100 UNITS/ML) SYG SC (20:51)
[2018-05-21] MEDS: ALBUTEROL/IPRATROPIUM (NEB) 3 ML AMP HHN ×3 (01:45→08:35)
[2018-05-21] MEDS: HEPARIN 1000 UNITS/ML 10 ML INJ CATHETER (08:55)
[2018-05-21] MEDS ORDERED: ALBUTEROL/IPRATROPIUM (NEB) 3 ML AMP HHN (09:00)
[2018-05-21] MEDS: LINAGLIPTIN 5 MG TABLET PO (09:57)
[2018-05-21] MEDS: CALCITRIOL 0.25 MCG CAP PO (09:57)
[2018-05-21] MEDS: FAMOTIDINE 20 MG TAB PO (09:57)
[2018-05-21] MEDS: DOCUSATE SODIUM 100 MG CAP PO ×2 (09:57→21:00)
[2018-05-21] MEDS: ASPIRIN (EC) 81 MG TAB PO (09:57)
[2018-05-21] MEDS: CYANOCOBALAMIN 1000 MCG INJ IM (09:57)
[2018-05-21] MEDS: GABAPENTIN 300 MG CAP PO ×3 (09:58→20:12)
[2018-05-21] MEDS: METOPROLOL 50 MG TAB PO ×2 (09:58→20:19)
[2018-05-21] MEDS: INSULIN ASPART [NOVOLOG] 3 ML PEN SC ×7 (10:00→21:00)
[2018-05-21] MEDS: EPOETIN 10000 UNITS/1 ML INJ (ESRD) SC (16:52)
[2018-05-21] MEDS: traMADol 50 MG TAB PO (19:00)
[2018-05-21] MEDS: ATORVASTATIN 40 MG TAB PO (20:11)
[2018-05-21] MEDS: INSULIN GLARGINE [LANTus] (100 UNITS/ML) SYG SC (20:55)
[2018-05-21] MEDS: SENNA TAB PO (21:00)
[2018-05-22 06:49] LABS: HEMATOCRIT 30.1 % (42.0-52.0)
[2018-05-22] MEDS: INSULIN ASPART [NOVOLOG] 3 ML PEN SC ×4 (07:35→12:21)
[2018-05-22] MEDS: GLUCOSE GEL 15 GRAM TUBE PO (08:28)
[2018-05-22] MEDS: ASPIRIN (EC) 81 MG TAB PO (08:54)
[2018-05-22] MEDS: METOPROLOL 50 MG TAB PO (08:56)
[2018-05-22] MEDS: GABAPENTIN 300 MG CAP PO ×2 (08:57→12:22)
[2018-05-22] MEDS: CALCITRIOL 0.25 MCG CAP PO (08:57)
[2018-05-22] MEDS: FAMOTIDINE 20 MG TAB PO (08:57)
[2018-05-22] MEDS: LINAGLIPTIN 5 MG TABLET PO (08:57)
[2018-05-22] MEDS ORDERED: INSULIN GLARGINE [LANTus] (100 UNITS/ML) SYG SC (20:00)
== END 2018-05-22 13:50 | DRG 551 ==
LOC: VRC 18:43
PROVIDERS: Physical Medicine & Rehabilitation
PROC: 5A1D70Z Performance of Urinary Filtration, Intermittent, Less than 6 Hours Per Day (ICD-10-PCS; principal; 2018-05-16)
DX: M54.16 Radiculopathy, lumbar region (principal); G92 Toxic encephalopathy; I12.0 Hypertensive chronic kidney disease with stage 5 chronic kidney disease or end stage renal disease; N17.9 Acute kidney failure, unspecified; N18.5 Chronic kidney disease, stage 5; N39.0 Urinary tract infection, site not specified; E11.69 Type 2 diabetes mellitus with other specified complication; E78.5 Hyperlipidemia, unspecified; E53.8 Deficiency of other specified B group vitamins; D64.9 Anemia, unspecified; Z72.0 Tobacco use; J44.9 Chronic obstructive pulmonary disease, unspecified; Z99.2 Dependence on renal dialysis; E11.43 Type 2 diabetes mellitus with diabetic autonomic (poly)neuropathy; R19.7 Diarrhea, unspecified; D50.9 Iron deficiency anemia, unspecified; F06.31 Mood disorder due to known physiological condition with depressive features; F06.8 Other specified mental disorders due to known physiological condition; M54.32 Sciatica, left side; M54.31 Sciatica, right side
CPT/HCPCS: 36600; 80053; 81001; 82607; 82803; 82962; 83036; 85014; 85018; 85025; 87081; 87086; 90935; 94640; 94664; 97110; 97116; 97150; 97163; 97167; 97530; 97535; 97542

== ENCOUNTER 2018-09-10 10:19 | Inpatient (IN) | payer MEDICARE, OTHER ==
[2018-09-10] MEDS: PANTOPRAZOLE 40 MG INJ IV ×2 (11:50→21:51)
[2018-09-10 12:15] LABS: WHITE BLOOD COUNT 7.7 10^3/ul (4.8-10.8)
[2018-09-10 12:15] LABS: ABNORMAL IP MESSAGE 1; HEMATOCRIT 18.5 % (42.0-52.0); MEAN CORPUSCULAR HEMOGLOBIN 30.1 pg (29.0-33.0); MEAN CORPUSCULAR HGB CONC 31.9 g/dl (32.0-37.0); MEAN CORPUSCULAR VOLUME 94.4 fl (82.0-101.0); MEAN PLATELET VOLUME 9.9 fl (7.4-10.4); PLATELET COUNT 246 10^3/UL (140-415); POSITIVE DIFF @See below; RED BLOOD COUNT 1.96 10^6/ul (4.70-6.10); RED CELL DISTRIBUTION WIDTH 14.6 % (11.5-14.5)
[2018-09-10 12:23] LABS: ADD MAN DIFF? YES; HEMOGLOBIN 5.9 g/dl (14.0-18.0); PATH REVIEW? YES
[2018-09-10] MEDS: SOD CHLORIDE 0.9% 0 ML IV (12:24)
[2018-09-10 12:38] LABS: ALANINE AMINOTRANSFERASE 16 IU/L (13-69); ALBUMIN 2.9 g/dl (3.3-4.9); ALKALINE PHOSPHATASE 62 IU/L (42-121); ANION GAP 17 (5-13); ASPARTATE AMINO TRANSFERASE 11 IU/L (15-46); BLOOD UREA NITROGEN 61 mg/dl (7-20); CALCIUM 8.6 mg/dl (8.4-10.2); CARBON DIOXIDE 24 mmol/L (21-31); CHLORIDE 92 mmol/L (97-110); CREATININE 6.65 mg/dl (0.61-1.24); GLUCOSE 145 mg/dl (70-220); INR 1.15; POTASSIUM 4.9 mmol/L (3.5-5.1); PROTIME 14.8 Sec (11.9-14.9); PT RATIO 1.2; SODIUM 133 mmol/L (135-144); TOTAL PROTEIN 6.1 g/dl (6.1-8.1)
[2018-09-10 12:39] LABS: PARTIAL THROMBOPLASTIN TIME 30.8 Sec (23.0-35.0)
[2018-09-10 12:51] LABS: TROPONIN-I 0.061 ng/ml (0.000-0.120)
[2018-09-10] MEDS ORDERED: ONDANSETRON 4 MG INJ IV ×2 (13:00→18:00)
[2018-09-10 13:03] LABS: ANISOCYTOSIS 1+ (0-0); EOSINOPHILS % (M) 2 % (0-7); GIANT THROMBO% (M) 1 % (0-0); LYMPHOCYTES #M 0.9 10^3/ul (0.8-2.9); LYMPHOCYTES % (M) 12 % (15-51); METAMYELOCYTES %M 1 % (0-0); MONOCYTE #M 0.5 10^3/ul (0.3-0.9); MONOCYTES % (M) 7 % (0-11); MYELOCYTES % (M) 1 % (0-0); PLATELET ESTIMATE NORMAL; POIKILOCYTOSIS 1+ (0-0); POLYCHROMASIA 3+ (0-0); SEGMENTED NEUTROPHILS (M) % 77 % (39-77); SMUDGE%M 4 % (0-0)
[2018-09-10 15:59] LABS: HEPATITIS B SURFACE ANTIGEN NEGATIVE (NEGATIVE)
[2018-09-10] MEDS ORDERED: NACL 0.9% 3 ML SYG IV (18:00)
[2018-09-10] MEDS ORDERED: traMADol 50 MG TAB PO (18:00)
[2018-09-10] MEDS ORDERED: ACETAMINOPHEN 325 MG TAB PO (18:00)
[2018-09-10] MEDS: INSULIN ASPART [NOVOLOG] 3 ML PEN SC ×2 (18:05→21:00)
[2018-09-10] MEDS: HEPARIN 1000 UNITS/ML 10 ML INJ CATHETER (18:36)
[2018-09-10] MEDS ORDERED: GLUCOSE GEL 15 GRAM TUBE BUCCAL (19:00)
[2018-09-10] MEDS ORDERED: GLUCOSE GEL 15 GRAM TUBE PO ×2 (19:00)
[2018-09-10] MEDS ORDERED: GLUCAGON 1 MG INJ IM (19:00)
[2018-09-10] MEDS: LACTULOSE 30ML CUP PO (21:51)
[2018-09-10] MEDS: PEG/ELECTROLYTES 4L BTL PO (21:51)
[2018-09-11] MEDS: LACTULOSE 30ML CUP PO ×5 (00:07→21:33)
[2018-09-11] MEDS: INSULIN ASPART [NOVOLOG] 3 ML PEN SC ×4 (05:00→21:00)
[2018-09-11] MEDS: HYDROCODONE/APAP (5/325) TAB PO ×5 (06:00→23:52)
[2018-09-11] MEDS: FUROSEMIDE 40 MG TAB PO ×2 (06:00→22:56)
[2018-09-11] MEDS ORDERED: PROPOFOL 200 MG INJ (07:00)
[2018-09-11] MEDS ORDERED: EPHEDrine SULFATE 50 MG/5 ML SYG (07:00)
[2018-09-11 08:22] LABS: ADD MAN DIFF? NO
[2018-09-11 08:25] LABS: BASOPHILS % 0.1 % (0.0-2.0); EOSINOPHILS # 0.1 10^3/ul (0.0-0.5); EOSINOPHILS % 1.5 % (0.0-7.0); HEMATOCRIT 23.4 % (42.0-52.0); HEMOGLOBIN 7.7 g/dl (14.0-18.0); LYMPHOCYTES # 1.1 10^3/ul (0.8-2.9); LYMPHOCYTES % 15.4 % (15.0-51.0); MEAN CORPUSCULAR HEMOGLOBIN 30.4 pg (29.0-33.0); MEAN CORPUSCULAR HGB CONC 32.9 g/dl (32.0-37.0); MEAN CORPUSCULAR VOLUME 92.5 fl (82.0-101.0); MEAN PLATELET VOLUME 10.3 fl (7.4-10.4); MONOCYTES % 12.8 % (0.0-11.0); NEUTROPHIL # 5.2 10^3/ul (1.6-7.5); NEUTROPHILS % 69.7 % (39.0-77.0); PLATELET COUNT 248 10^3/UL (140-415); RED BLOOD COUNT 2.53 10^6/ul (4.70-6.10); RED CELL DISTRIBUTION WIDTH 15.6 % (11.5-14.5)
[2018-09-11 08:25] LABS: WHITE BLOOD COUNT 7.4 10^3/ul (4.8-10.8)
[2018-09-11 08:45] LABS: ANION GAP 12 (5-13); BLOOD UREA NITROGEN 40 mg/dl (7-20); CALCIUM 8.3 mg/dl (8.4-10.2); CARBON DIOXIDE 29 mmol/L (21-31); CHLORIDE 96 mmol/L (97-110); CREATININE 4.68 mg/dl (0.61-1.24); GLUCOSE 80 mg/dl (70-220); MAGNESIUM 1.8 mg/dl (1.7-2.5); PHOSPHORUS 5.8 mg/dl (2.5-4.9); POTASSIUM 4.1 mmol/L (3.5-5.1); SODIUM 137 mmol/L (135-144)
[2018-09-11] MEDS: METOPROLOL 50 MG TAB PO ×2 (09:00→22:57)
[2018-09-11] MEDS: GABAPENTIN 300 MG CAP PO ×3 (09:00→22:56)
[2018-09-11] MEDS: LINAGLIPTIN 5 MG TABLET PO (09:00)
[2018-09-11] MEDS: CALCITRIOL 0.25 MCG CAP PO (09:00)
[2018-09-11] MEDS: METOLAZONE 2.5 MG TAB PO (09:00)
[2018-09-11] MEDS: PANTOPRAZOLE 40 MG INJ IV ×2 (11:00→21:33)
[2018-09-11] MEDS: DEXTROSE 5%-0.45% NACL 1,000 ML IV (11:00)
[2018-09-11] MEDS: INSULIN GLARGINE [LANTus] (100 UNITS/ML) SYG SC (11:01)
[2018-09-11] MEDS: FENTAnyl 50 MCG/ML VIAL (12:56)
[2018-09-11] MEDS ORDERED: ONDANSETRON 4 MG INJ IV (13:00)
[2018-09-11 17:20] LABS: ADD MAN DIFF? NO
[2018-09-11 17:21] LABS: BASOPHILS % 0.1 % (0.0-2.0); EOSINOPHILS # 0.1 10^3/ul (0.0-0.5); EOSINOPHILS % 0.9 % (0.0-7.0); HEMATOCRIT 25.7 % (42.0-52.0); HEMOGLOBIN 8.4 g/dl (14.0-18.0); LYMPHOCYTES # 1.2 10^3/ul (0.8-2.9); MEAN CORPUSCULAR HEMOGLOBIN 30.5 pg (29.0-33.0); MEAN CORPUSCULAR HGB CONC 32.7 g/dl (32.0-37.0); MEAN CORPUSCULAR VOLUME 93.5 fl (82.0-101.0); MEAN PLATELET VOLUME 9.5 fl (7.4-10.4); MONOCYTES % 11.9 % (0.0-11.0); NEUTROPHIL # 6.2 10^3/ul (1.6-7.5); NEUTROPHILS % 72.6 % (39.0-77.0); PLATELET COUNT 236 10^3/UL (140-415); RED BLOOD COUNT 2.75 10^6/ul (4.70-6.10); RED CELL DISTRIBUTION WIDTH 15.6 % (11.5-14.5)
[2018-09-11 17:21] LABS: WHITE BLOOD COUNT 8.5 10^3/ul (4.8-10.8)
[2018-09-11] MEDS: PEG/ELECTROLYTES 4L BTL PO (18:16)
[2018-09-11] MEDS: ATORVASTATIN 20 MG TAB PO (22:56)
[2018-09-12] MEDS: LACTULOSE 30ML CUP PO ×7 (01:00→23:46)
[2018-09-12] MEDS: INSULIN ASPART [NOVOLOG] 3 ML PEN SC ×6 (01:00→20:56)
[2018-09-12] MEDS: ACCU-CHEK XX (02:00)
[2018-09-12] MEDS: HYDROmorphONE 0.5 MG/0.5 ML SYG IV (05:34)
[2018-09-12] MEDS: FUROSEMIDE 40 MG TAB PO ×2 (06:00→17:59)
[2018-09-12] MEDS: HYDROCODONE/APAP (5/325) TAB PO ×4 (06:00→23:47)
[2018-09-12 06:06] LABS: ADD MAN DIFF? NO
[2018-09-12 06:07] LABS: BASOPHILS % 0.1 % (0.0-2.0); EOSINOPHILS # 0.1 10^3/ul (0.0-0.5); EOSINOPHILS % 1.4 % (0.0-7.0); HEMATOCRIT 22.6 % (42.0-52.0); HEMOGLOBIN 7.4 g/dl (14.0-18.0); LYMPHOCYTES # 0.9 10^3/ul (0.8-2.9); LYMPHOCYTES % 12.6 % (15.0-51.0); MEAN CORPUSCULAR HEMOGLOBIN 30.5 pg (29.0-33.0); MEAN CORPUSCULAR HGB CONC 32.7 g/dl (32.0-37.0); MEAN PLATELET VOLUME 10.1 fl (7.4-10.4); MONOCYTE # 0.9 10^3/ul (0.3-0.9); MONOCYTES % 12.4 % (0.0-11.0); NEUTROPHIL # 5.1 10^3/ul (1.6-7.5); NEUTROPHILS % 72.9 % (39.0-77.0); PLATELET COUNT 230 10^3/UL (140-415); RED BLOOD COUNT 2.43 10^6/ul (4.70-6.10)
[2018-09-12 06:32] LABS: ALANINE AMINOTRANSFERASE 14 IU/L (13-69); ALBUMIN 2.6 g/dl (3.3-4.9); ALBUMIN/GLOBULIN RATIO 0.83; ALKALINE PHOSPHATASE 57 IU/L (42-121); ANION GAP 13 (5-13); ASPARTATE AMINO TRANSFERASE 12 IU/L (15-46); BLOOD UREA NITROGEN 42 mg/dl (7-20); CALCIUM 8.2 mg/dl (8.4-10.2); CARBON DIOXIDE 26 mmol/L (21-31); CHLORIDE 97 mmol/L (97-110); GLUCOSE 67 mg/dl (70-220); SODIUM 136 mmol/L (135-144); TOTAL PROTEIN 5.7 g/dl (6.1-8.1)
[2018-09-12] MEDS: GABAPENTIN 300 MG CAP PO ×3 (09:00→20:58)
[2018-09-12] MEDS: METOLAZONE 2.5 MG TAB PO (09:00)
[2018-09-12] MEDS: METOPROLOL 50 MG TAB PO ×2 (09:00→20:59)
[2018-09-12] MEDS: LINAGLIPTIN 5 MG TABLET PO (09:00)
[2018-09-12] MEDS: CALCITRIOL 0.25 MCG CAP PO (09:00)
[2018-09-12] MEDS: PANTOPRAZOLE 40 MG INJ IV ×2 (10:03→20:58)
[2018-09-12] MEDS: INSULIN GLARGINE [LANTus] (100 UNITS/ML) SYG SC (10:05)
[2018-09-12] MEDS: DEXTROSE 50% 50 ML SYRINGE IV (10:05)
[2018-09-12] MEDS: DEXTROSE 5%-0.45% NACL 1,000 ML IV (10:12)
[2018-09-12 10:54] LABS: IMMEDIATE SPIN CROSSMATCH 1 5
[2018-09-12] MEDS: PEG/ELECTROLYTES 4L BTL PO (12:42)
[2018-09-12] MEDS: EPOETIN 10000 UNITS/1 ML INJ (ESRD) SC (17:04)
[2018-09-12] MEDS ORDERED: INSULIN ASPART [NOVOLOG] 3 ML PEN SC (17:35)
[2018-09-12 20:32] LABS: ANION GAP 9 (5-13); BLOOD UREA NITROGEN 20 mg/dl (7-20); CALCIUM 8.3 mg/dl (8.4-10.2); CARBON DIOXIDE 28 mmol/L (21-31); CHLORIDE 97 mmol/L (97-110); CREATININE 3.64 mg/dl (0.61-1.24); GLUCOSE 142 mg/dl (70-220); POTASSIUM 3.7 mmol/L (3.5-5.1); SODIUM 134 mmol/L (135-144)
[2018-09-12] MEDS: ATORVASTATIN 20 MG TAB PO (20:58)
[2018-09-13] MEDS: DEXTROSE 5%-0.45% NACL 1,000 ML IV (01:53)
[2018-09-13] MEDS: ACCU-CHEK XX (02:00)
[2018-09-13] MEDS: LACTULOSE 30ML CUP PO ×8 (03:38→23:49)
[2018-09-13] MEDS: INSULIN ASPART [NOVOLOG] 3 ML PEN SC ×5 (05:00→20:48)
[2018-09-13] MEDS: HYDROCODONE/APAP (5/325) TAB PO ×4 (05:37→23:47)
[2018-09-13] MEDS: FUROSEMIDE 40 MG TAB PO ×2 (05:37→17:33)
[2018-09-13] MEDS: DEXTROSE 50% 50 ML SYRINGE IV ×2 (05:40→09:10)
[2018-09-13 05:55] LABS: ADD MAN DIFF? NO
[2018-09-13 05:58] LABS: BASOPHILS % 0.2 % (0.0-2.0); EOSINOPHILS # 0.1 10^3/ul (0.0-0.5); HEMATOCRIT 29.8 % (42.0-52.0); HEMOGLOBIN 9.7 g/dl (14.0-18.0); LYMPHOCYTES # 1.2 10^3/ul (0.8-2.9); MEAN CORPUSCULAR HEMOGLOBIN 29.7 pg (29.0-33.0); MEAN CORPUSCULAR HGB CONC 32.6 g/dl (32.0-37.0); MEAN CORPUSCULAR VOLUME 91.1 fl (82.0-101.0); MEAN PLATELET VOLUME 9.5 fl (7.4-10.4); MONOCYTE # 0.8 10^3/ul (0.3-0.9); MONOCYTES % 14.1 % (0.0-11.0); NEUTROPHIL # 3.8 10^3/ul (1.6-7.5); NEUTROPHILS % 63.4 % (39.0-77.0); PLATELET COUNT 208 10^3/UL (140-415); RED BLOOD COUNT 3.27 10^6/ul (4.70-6.10); RED CELL DISTRIBUTION WIDTH 15.9 % (11.5-14.5)
[2018-09-13 06:12] LABS: POTASSIUM 3.8 mmol/L (3.5-5.1)
[2018-09-13] MEDS: GABAPENTIN 300 MG CAP PO ×3 (09:00→20:31)
[2018-09-13] MEDS: LINAGLIPTIN 5 MG TABLET PO (09:00)
[2018-09-13] MEDS: CALCITRIOL 0.25 MCG CAP PO (09:00)
[2018-09-13] MEDS: METOLAZONE 2.5 MG TAB PO (09:00)
[2018-09-13] MEDS: PANTOPRAZOLE 40 MG INJ IV ×2 (09:18→20:30)
[2018-09-13] MEDS: METOPROLOL 50 MG TAB PO ×2 (09:18→20:32)
[2018-09-13] MEDS ORDERED: DEXTROSE 10 %/0.45 % NACL 1,000 ML IV (10:00)
[2018-09-13] MEDS: DEXTROSE 10 %/0.45 % NACL 1,000 ML IV ×2 (10:21→14:30)
[2018-09-13] MEDS: INSULIN GLARGINE [LANTus] (100 UNITS/ML) SYG SC (10:28)
[2018-09-13] MEDS ORDERED: EPHEDrine SULFATE 50 MG/5 ML SYG IV (12:00)
[2018-09-13] MEDS ORDERED: ONDANSETRON 4 MG INJ IV (12:00)
[2018-09-13] MEDS ORDERED: hydrALAzine 20 MG INJ IV (12:00)
[2018-09-13] MEDS ORDERED: LABETALOL HCL 20MG INJ IV (12:00)
[2018-09-13] MEDS: ATORVASTATIN 20 MG TAB PO (20:30)
[2018-09-13] MEDS: CHOLESTYRAMINE (LIGHT) 4 GM PACKET PO (22:02)
[2018-09-14] MEDS: INSULIN ASPART [NOVOLOG] 3 ML PEN SC ×6 (01:00→17:35)
[2018-09-14] MEDS: ACCU-CHEK XX (01:41)
[2018-09-14] MEDS: LACTULOSE 30ML CUP PO ×6 (03:00→15:00)
[2018-09-14] MEDS: HYDROCODONE/APAP (5/325) TAB PO ×4 (05:13→23:48)
[2018-09-14] MEDS: FUROSEMIDE 40 MG TAB PO ×3 (05:13→18:09)
[2018-09-14 05:16] LABS: WHITE BLOOD COUNT 5.3 10^3/ul (4.8-10.8)
[2018-09-14 05:16] LABS: ADD MAN DIFF? NO; BASOPHILS % 0.2 % (0.0-2.0); EOSINOPHILS # 0.1 10^3/ul (0.0-0.5); EOSINOPHILS % 2.3 % (0.0-7.0); HEMATOCRIT 27.7 % (42.0-52.0); HEMOGLOBIN 8.8 g/dl (14.0-18.0); LYMPHOCYTES # 1.1 10^3/ul (0.8-2.9); LYMPHOCYTES % 21.5 % (15.0-51.0); MEAN CORPUSCULAR HEMOGLOBIN 29.2 pg (29.0-33.0); MEAN CORPUSCULAR HGB CONC 31.8 g/dl (32.0-37.0); MEAN PLATELET VOLUME 10.2 fl (7.4-10.4); MONOCYTE # 0.8 10^3/ul (0.3-0.9); MONOCYTES % 15.5 % (0.0-11.0); NEUTROPHIL # 3.2 10^3/ul (1.6-7.5); NEUTROPHILS % 60.1 % (39.0-77.0); PLATELET COUNT 207 10^3/UL (140-415); RED BLOOD COUNT 3.01 10^6/ul (4.70-6.10); RED CELL DISTRIBUTION WIDTH 15.6 % (11.5-14.5)
[2018-09-14 05:58] LABS: ANION GAP 9 (5-13); BLOOD UREA NITROGEN 25 mg/dl (7-20); CALCIUM 8.2 mg/dl (8.4-10.2); CARBON DIOXIDE 28 mmol/L (21-31); CHLORIDE 97 mmol/L (97-110); CREATININE 5.06 mg/dl (0.61-1.24); GLUCOSE 147 mg/dl (70-220); POTASSIUM 3.9 mmol/L (3.5-5.1); SODIUM 134 mmol/L (135-144)
[2018-09-14] MEDS: PANTOPRAZOLE 40 MG INJ IV ×2 (08:50→21:23)
[2018-09-14] MEDS: CALCITRIOL 0.25 MCG CAP PO (08:52)
[2018-09-14] MEDS: METOPROLOL 50 MG TAB PO ×2 (08:52→21:23)
[2018-09-14] MEDS: GABAPENTIN 300 MG CAP PO ×3 (08:52→21:23)
[2018-09-14] MEDS: METOLAZONE 2.5 MG TAB PO (08:53)
[2018-09-14] MEDS: INSULIN GLARGINE [LANTus] (100 UNITS/ML) SYG SC (08:54)
[2018-09-14] MEDS: CHOLESTYRAMINE (LIGHT) 4 GM PACKET PO ×2 (09:00→21:23)
[2018-09-14] MEDS: LINAGLIPTIN 5 MG TABLET PO (09:22)
[2018-09-14] MEDS: DEXTROSE 10 %/0.45 % NACL 1,000 ML IV (11:23)
[2018-09-14] MEDS ORDERED: ALBUTEROL 0.083% (NEB) 2.5 MG/3 ML AMP HHN (12:30)
[2018-09-14] MEDS ORDERED: ONDANSETRON 4 MG INJ IV ×2 (12:30→15:30)
[2018-09-14] MEDS ORDERED: EPHEDrine SULFATE 50 MG/5 ML SYG IV (12:30)
[2018-09-14] MEDS ORDERED: FENTAnyl 50 MCG/ML VIAL IV (12:30)
[2018-09-14] MEDS ORDERED: LABETALOL HCL 20MG INJ IV (12:30)
[2018-09-14] MEDS ORDERED: ATROPINE 1 MG/10 ML SYRINGE IV (12:30)
[2018-09-14] MEDS ORDERED: DIPHENHYDRAMINE 50 MG INJ IV (12:30)
[2018-09-14] MEDS ORDERED: ROPIVACAINE 0.5 % 30 ML VIAL (12:38)
[2018-09-14] MEDS ORDERED: PROPOFOL 20 ML (12:40)
[2018-09-14] MEDS ORDERED: LIDOCAINE 2% (SDV) 5 ML INJ (12:40)
[2018-09-14] MEDS ORDERED: MIDAZOLAM 1 MG/ML 2 ML INJ (12:40)
[2018-09-14] MEDS ORDERED: ETOMIDATE 20 MG INJ (12:42)
[2018-09-14] MEDS ORDERED: PHENYLephrine (100 MCG/ML) 5ML SYG (12:48)
[2018-09-14] MEDS: HEPARIN 1000 UNITS/ML 10 ML INJ (13:26)
[2018-09-14] MEDS: LIDOCAINE 1% (MPF) 30 ML INJ ×2 (13:29→14:00)
[2018-09-14] MEDS: GELATIN SIZE 100 SPONGE (14:51)
[2018-09-14] MEDS: THROMBIN 5000 UNIT VIAL (14:52)
[2018-09-14] MEDS ORDERED: ACETAMINOPHEN 325 MG TAB PO (15:30)
[2018-09-14] MEDS ORDERED: HYDROCODONE/APAP (5/325) TAB PO (15:30)
[2018-09-14] MEDS: DEXTROSE 50% 50 ML SYRINGE IV (15:32)
[2018-09-14] MEDS ORDERED: hydrALAzine 20 MG INJ (16:34)
[2018-09-14] MEDS: hydrALAzine 20 MG INJ IV (16:47)
[2018-09-14] MEDS: morphine 4 MG/ML VIAL IV (17:32)
[2018-09-14] MEDS: EPOETIN 10000 UNITS/1 ML INJ (ESRD) SC (18:08)
[2018-09-14] MEDS: ATORVASTATIN 20 MG TAB PO (21:23)
[2018-09-15] MEDS: ACCU-CHEK XX (02:32)
[2018-09-15 05:13] LABS: ADD MAN DIFF? NO
[2018-09-15 05:19] LABS: WHITE BLOOD COUNT 7.4 10^3/ul (4.8-10.8)
[2018-09-15 05:19] LABS: BASOPHILS % 0.3 % (0.0-2.0); EOSINOPHILS # 0.1 10^3/ul (0.0-0.5); EOSINOPHILS % 1.8 % (0.0-7.0); HEMATOCRIT 30.1 % (42.0-52.0); HEMOGLOBIN 9.9 g/dl (14.0-18.0); LYMPHOCYTES # 1.2 10^3/ul (0.8-2.9); LYMPHOCYTES % 16.5 % (15.0-51.0); MEAN CORPUSCULAR HEMOGLOBIN 30.2 pg (29.0-33.0); MEAN CORPUSCULAR HGB CONC 32.9 g/dl (32.0-37.0); MEAN CORPUSCULAR VOLUME 91.8 fl (82.0-101.0); MEAN PLATELET VOLUME 10.2 fl (7.4-10.4); MONOCYTES % 13.2 % (0.0-11.0); NEUTROPHILS % 67.9 % (39.0-77.0); PLATELET COUNT 212 10^3/UL (140-415); RED BLOOD COUNT 3.28 10^6/ul (4.70-6.10); RED CELL DISTRIBUTION WIDTH 15.2 % (11.5-14.5)
[2018-09-15] MEDS: FUROSEMIDE 40 MG TAB PO ×2 (05:59→17:19)
[2018-09-15] MEDS: HYDROCODONE/APAP (5/325) TAB PO ×3 (06:00→17:10)
[2018-09-15] MEDS: Insulin NOVOLOG SS MILD Algorithm (SS with meals and bedtime) SC ×4 (07:30→21:00)
[2018-09-15] MEDS: CALCITRIOL 0.25 MCG CAP PO (08:26)
[2018-09-15] MEDS: CHOLESTYRAMINE (LIGHT) 4 GM PACKET PO ×2 (08:26→21:08)
[2018-09-15] MEDS: LINAGLIPTIN 5 MG TABLET PO (08:26)
[2018-09-15] MEDS: PANTOPRAZOLE 40 MG INJ IV ×2 (08:26→21:08)
[2018-09-15] MEDS: INSULIN GLARGINE [LANTus] (100 UNITS/ML) SYG SC (08:29)
[2018-09-15] MEDS: METOPROLOL 50 MG TAB PO ×2 (09:46→21:08)
[2018-09-15] MEDS: GABAPENTIN 300 MG CAP PO ×3 (09:46→21:07)
[2018-09-15] MEDS: PROPOFOL 20 ML ×2 (09:46→09:47)
[2018-09-15] MEDS: METOLAZONE 2.5 MG TAB PO (09:46)
[2018-09-15] MEDS: ATORVASTATIN 20 MG TAB PO (21:07)
[2018-09-16] MEDS: ACCU-CHEK XX (02:00)
[2018-09-16] MEDS: FUROSEMIDE 40 MG TAB PO (05:23)
[2018-09-16] MEDS: HYDROCODONE/APAP (5/325) TAB PO ×2 (05:25)
[2018-09-16] MEDS: Insulin NOVOLOG SS MILD Algorithm (SS with meals and bedtime) SC (07:30)
[2018-09-16] MEDS: INSULIN GLARGINE [LANTus] (100 UNITS/ML) SYG SC (08:20)
[2018-09-16] MEDS: CHOLESTYRAMINE (LIGHT) 4 GM PACKET PO (08:22)
[2018-09-16] MEDS: CALCITRIOL 0.25 MCG CAP PO (08:22)
[2018-09-16] MEDS: GABAPENTIN 300 MG CAP PO (08:22)
[2018-09-16] MEDS: METOLAZONE 2.5 MG TAB PO (08:22)
[2018-09-16] MEDS: LINAGLIPTIN 5 MG TABLET PO (08:22)
[2018-09-16] MEDS: METOPROLOL 50 MG TAB PO (08:23)
[2018-09-16] MEDS: PANTOPRAZOLE 40 MG INJ IV (08:23)
== END 2018-09-16 10:30 | disposition home or self-care (01) | DRG 981 ==
LOC: PP2 09-14 22:23 → E/R 10:19 → PP2 12:47
PROVIDERS: Internal Medicine
PROC: 03180KD Bypass Left Brachial Artery to Upper Arm Vein with Nonautologous Tissue Substitute, Open Approach (ICD-10-PCS; principal; 2018-09-11 12:19)
PROC: 5A1D70Z Performance of Urinary Filtration, Intermittent, Less than 6 Hours Per Day (ICD-10-PCS; 2018-09-11 12:19)
PROC: 5A1D70Z Performance of Urinary Filtration, Intermittent, Less than 6 Hours Per Day (ICD-10-PCS; 2018-09-11 12:19)
PROC: 5A1D70Z Performance of Urinary Filtration, Intermittent, Less than 6 Hours Per Day (ICD-10-PCS; 2018-09-11 12:19)
PROC: 0DB68ZX Excision of Stomach, Via Natural or Artificial Opening Endoscopic, Diagnostic (ICD-10-PCS; 2018-09-11 12:19)
PROC: 0DB78ZX Excision of Stomach, Pylorus, Via Natural or Artificial Opening Endoscopic, Diagnostic (ICD-10-PCS; 2018-09-11 12:19)
PROC: 0W3P8ZZ Control Bleeding in Gastrointestinal Tract, Via Natural or Artificial Opening Endoscopic (ICD-10-PCS; 2018-09-11 12:19)
PROC: 0DBL8ZX Excision of Transverse Colon, Via Natural or Artificial Opening Endoscopic, Diagnostic (ICD-10-PCS; 2018-09-11 12:19)
PROC: 30233N1 Transfusion of Nonautologous Red Blood Cells into Peripheral Vein, Percutaneous Approach (ICD-10-PCS; 2018-09-11 12:19)
PROC: 30233N1 Transfusion of Nonautologous Red Blood Cells into Peripheral Vein, Percutaneous Approach (ICD-10-PCS; 2018-09-11 12:19)
DX: K31.811 Angiodysplasia of stomach and duodenum with bleeding (principal); N18.6 End stage renal disease; D62 Acute posthemorrhagic anemia; I12.0 Hypertensive chronic kidney disease with stage 5 chronic kidney disease or end stage renal disease; N25.81 Secondary hyperparathyroidism of renal origin; B18.1 Chronic viral hepatitis B without delta-agent; E11.22 Type 2 diabetes mellitus with diabetic chronic kidney disease; E78.5 Hyperlipidemia, unspecified; F17.210 Nicotine dependence, cigarettes, uncomplicated; M51.36 Other intervertebral disc degeneration, lumbar region; I25.10 Atherosclerotic heart disease of native coronary artery without angina pectoris; K29.70 Gastritis, unspecified, without bleeding; K64.8 Other hemorrhoids; D12.3 Benign neoplasm of transverse colon; D63.1 Anemia in chronic kidney disease; K59.1 Functional diarrhea; Z96.652 Presence of left artificial knee joint; Z99.2 Dependence on renal dialysis; Z79.4 Long term (current) use of insulin; Z79.82 Long term (current) use of aspirin; Z95.1 Presence of aortocoronary bypass graft; Z90.49 Acquired absence of other specified parts of digestive tract
CPT/HCPCS: 36415; 36430; 80048; 80053; 82962; 83036; 83735; 84100; 84132; 84484; 85025; 85610; 85730; 86850; 86900; 86901; 86920; 87340; 88305; 88312; 90935; 93005; 96374; 97162; 99291-25

== ENCOUNTER 2018-12-18 18:33 | Emergency (ER) | payer MEDICARE, OTHER ==
[2018-12-18] MEDS ORDERED: SOD CHLORIDE 0.9% 1,000 ML IV (21:33)
[2018-12-18 22:25] LABS: ADD MAN DIFF? NO
[2018-12-18 22:30] LABS: BASOPHILS % 0.1 % (0.0-2.0); EOSINOPHILS # 0.1 10^3/ul (0.0-0.5); EOSINOPHILS % 0.9 % (0.0-7.0); HEMATOCRIT 32.4 % (42.0-52.0); HEMOGLOBIN 10.2 g/dl (14.0-18.0); LYMPHOCYTES # 1.9 10^3/ul (0.8-2.9); MEAN CORPUSCULAR HEMOGLOBIN 29.7 pg (29.0-33.0); MEAN CORPUSCULAR HGB CONC 31.5 g/dl (32.0-37.0); MEAN CORPUSCULAR VOLUME 94.2 fl (82.0-101.0); MEAN PLATELET VOLUME 9.9 fl (7.4-10.4); MONOCYTE # 0.9 10^3/ul (0.3-0.9); MONOCYTES % 12.1 % (0.0-11.0); NEUTROPHIL # 4.9 10^3/ul (1.6-7.5); NEUTROPHILS % 62.5 % (39.0-77.0); PLATELET COUNT 200 10^3/UL (140-415); RED BLOOD COUNT 3.44 10^6/ul (4.70-6.10); RED CELL DISTRIBUTION WIDTH 15.1 % (11.5-14.5)
[2018-12-18 22:30] LABS: WHITE BLOOD COUNT 7.8 10^3/ul (4.8-10.8)
[2018-12-18 22:47] LABS: ALANINE AMINOTRANSFERASE 13 IU/L (13-69); ALBUMIN 3.2 g/dl (3.3-4.9); ALBUMIN/GLOBULIN RATIO 0.88; ALKALINE PHOSPHATASE 103 IU/L (42-121); AMYLASE 126 U/L (11-123); ANION GAP 9 (5-13); ASPARTATE AMINO TRANSFERASE 17 IU/L (15-46); BILIRUBIN,INDIRECT 0.3 mg/dl (0-1.1); BILIRUBIN,TOTAL 0.3 mg/dl (0.2-1.3); BLOOD UREA NITROGEN 26 mg/dl (7-20); CALCIUM 8.9 mg/dl (8.4-10.2); CARBON DIOXIDE 33 mmol/L (21-31); CHLORIDE 96 mmol/L (97-110); CREATININE 5.88 mg/dl (0.61-1.24); GLUCOSE 160 mg/dl (70-220); LIPASE 42 U/L (23-300); POTASSIUM 4.4 mmol/L (3.5-5.1); SODIUM 138 mmol/L (135-144); TOTAL PROTEIN 6.8 g/dl (6.1-8.1)
[2018-12-18 22:49] LABS: INR 1.16; PROTIME 14.9 Sec (11.9-14.9); PT RATIO 1.2
[2018-12-18 22:50] LABS: PARTIAL THROMBOPLASTIN TIME 26.9 Sec (23.0-35.0)
[2018-12-18 22:58] LABS: TROPONIN-I 0.022 ng/ml (0.000-0.120)
== END 2018-12-19 00:15 | disposition home or self-care (01) ==
LOC: E/R 12-19 00:15
DX: K62.5 Hemorrhage of anus and rectum (principal); I12.0 Hypertensive chronic kidney disease with stage 5 chronic kidney disease or end stage renal disease; N18.6 End stage renal disease; E11.22 Type 2 diabetes mellitus with diabetic chronic kidney disease; I25.10 Atherosclerotic heart disease of native coronary artery without angina pectoris; J44.9 Chronic obstructive pulmonary disease, unspecified; Z79.4 Long term (current) use of insulin; Z87.891 Personal history of nicotine dependence; Z99.2 Dependence on renal dialysis; Z95.1 Presence of aortocoronary bypass graft; Z96.659 Presence of unspecified artificial knee joint
CPT/HCPCS: 71045; 80053; 82150; 82962; 83690; 84484; 85025; 85610; 85730; 93005; 99285-25